=== PATIENT | female | born 1990 | race Two or more races ===

== ENCOUNTER 2016-12-13 08:02 | Emergency (ER) | payer MEDICAID ==
[~2016-12-13] VITALS: Ht 149.9 cm; Wt 81.6 kg
--- NOTE | 2016-12-13 08:13 | NUR ---
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 SKIN IS WARM AND DRY. RESP IS EVEN AND UNLABORED WITH NAD NOTED. DR ZALDIVAR AT BS FOR EVAL.
[2016-12-13] MEDS ORDERED: diphenhydrAMINE HCL 50 MG/ML VIAL ONE (08:19)
[2016-12-13] MEDS ORDERED: METOCLOPRAMIDE HCL 10 MG/2 ML VIAL ONE (08:19)
[2016-12-13] MEDS ORDERED: DEXAMETHASONE SOD PHOSPHATE 10 MG/ML VIAL ONE (08:20)
[2016-12-13] MEDS ORDERED: IV NS 0.9% 50 ML IV ONE (08:21)
[2016-12-13] MEDS ORDERED: ACYCLOVIR 200 MG CAPSULE ONE (08:21)
[2016-12-13] MEDS ORDERED: IV NS 0.9% 1,000 ML ONE (08:21)
[2016-12-13] MEDS ORDERED: SECONDARY IV SET 1 EA INFUS.SET MC ONE (08:22)
[2016-12-13] MEDS ORDERED: IV SET PRIMARY PUMP SET 1 EA INFUS.SET MC ONE (08:22)
[2016-12-13] MEDS: IV NS 0.9% 1,000 ML BAG IV ONE (08:29)
--- NOTE | 2016-12-13 08:29 | NUR ---
iv accessed to rac 20.
[2016-12-13] MEDS ORDERED: ACYCLOVIR 200 MG CAPSULE PO ONE (08:30)
[2016-12-13] MEDS: DEXAMETHASONE SOD PHOSPHATE 10 MG/ML VIAL IV ONE (08:30)
[2016-12-13] MEDS: METOCLOPRAMIDE HCL 10 MG/2 ML VIAL IV ONE (08:30)
[2016-12-13] MEDS: diphenhydrAMINE HCL 50 MG/ML VIAL IV ONE (08:31)
[2016-12-13] MEDS: ACYCLOVIR 200 MG CAPSULE PO ONE (08:35)
--- NOTE | 2016-12-13 08:35 | NUR ---
Medicated patient as ordered
--- NOTE | 2016-12-13 08:45 | NUR ---
Urine sample sent to lab
--- NOTE | 2016-12-13 08:50 | NUR ---
lab called for urine pickling solution maker. Spoke with Emely
[2016-12-13 09:16] VITALS: BP 128/88
--- NOTE | 2016-12-13 09:16 | NUR ---
Patient discharged to home in stable condition. Written and verbal after care instructions given. Patient verbalizes understanding of instruction.IV removed. Catheter intact and site benign. Pressure and 4x4 applied to site. No bleeding noted.
== END 2016-12-13 09:17 | disposition home or self-care (01) ==
LOC: ER 08:03
DX: R51 Headache (principal); G51.0 Bell's palsy; E78.00 Pure hypercholesterolemia, unspecified; Z88.1 Allergy status to other antibiotic agents
CPT/HCPCS: 84703; 96361; 96374; 96375; 99284; A4216; A4606; J1100; J1200; J2765; J7030; Z7610

== ENCOUNTER 2018-02-24 14:47 | Emergency (ER) | payer MEDICAID ==
[~2018-02-24] VITALS: Ht 149.9 cm; Wt 72.6 kg
[2018-02-24 14:52] VITALS: BP 113/77
[2018-02-24 15:42] LABS: APPEARANCE,URINE HAZY (CLEAR); BILIRUBIN,URINE Negative (NEGATIVE); BLOOD, URINE Negative Ery/uL (NEGATIVE); COLOR,URINE Yellow (YELLOW); KETONES,URINE Trace (NEGATIVE); LEUKOCYTE ESTERASE ,URINE Small (NEGATIVE); NITRITE, URINE Negative (NEGATIVE); PH,URINE 5.5 (5.0-8.0); PROTEIN,URINE Negative (NEGATIVE); UGLUCOSE Negative (NEGATIVE); UROBILINOGEN,URINE 0.2 EU/dL (0.2)
[2018-02-24 15:47] LABS: RBC,URINE 0-2 /HPF (0-2)
[2018-02-24 15:48] LABS: BACTERIA,URINE Few /HPF (None Seen); SQUAMOUS EPITHELIAL CELL,UR Many /HPF (None Seen)
== END 2018-02-24 16:21 | disposition home or self-care (01) ==
LOC: ER 14:49
DX: N30.90 Cystitis, unspecified without hematuria (principal); E78.00 Pure hypercholesterolemia, unspecified; Z88.1 Allergy status to other antibiotic agents
CPT/HCPCS: 81001; 84703; 99284; A4606; Z7610; 81000-TC

== ENCOUNTER 2018-08-30 22:52 | Emergency (ER) | END 2018-08-31 00:21 | disposition home or self-care (01) | DX: R07.89 Other chest pain (principal); R06.02 Shortness of breath; D72.829 Elevated white blood cell count, unspecified; E66.9 Obesity, unspecified; E78.5 Hyperlipidemia, unspecified; G51.0 Bell's palsy; Z88.1 Allergy status to other antibiotic agents ==